=== PATIENT | female | born 1940 | race Caucasian/White ===

== ENCOUNTER 2016-07-29 14:52 | Observation (INO) | payer MEDICARE, BC ==
--- OUTSIDE RECORDS SUMMARY | 2016-07-29 14:56 | XMS REPORT | Continuity of Care Document ---
:1940 Author Organization [facility] ([facility]) Address [address] [place] [address] Phone [phone] Care Team Providers Name Role Phone Cathi Billy Primary Care Provider [phone] Source Comments This disclosure is being made pursuant to the Care Everywhere program, applicable federal and state laws, and may not contain all informaitonavailable regarding this patient.[facility] ([facility]) Active Allergies and Adverse Reactions Allergen Noted Date Severity Reactions Comments Acth 03/12/2010 Urticaria (Hives) Cotrim Double-Strength 01/29/2016 Urticaria (Hives) Meperidine 03/12/2010 Nausea & Vomiting Niacin 03/12/2010 Urticaria (Hives) Other Agent 03/12/2010 Headache Food Dye: Headaches Raisins :Headaches Propoxyphene 03/12/2010 Loss of Consciousness,Nausea & Vomiting Ruzoqms-Szv-Bdn Reductase 01/29/2016 OTHER Kidney pain Inhibitors Sulfamethoprim Ds 03/12/2010 Urticaria (Hives) Current Medications Prescription Sig. Disp. Refills Start Date End Date Status levothyroxine 88 mcg Take 88 mcg by Active tablet mouth daily. aspirin 81 mg EC tablet Take 81 mg by Active mouth daily. CHOLECALCIFEROL, VITAMIN Take 1,000 Units Active D3, (VITAMIN D-3 PO) by mouth daily. Active Problems Problem Noted Date Vasovagal near syncope 01/29/2016 Primary hyperparathyroidism 04/26/2013 Immunizations Name Dates Previously Given Next Due Influenza, unspecified 10/31/2012,11/15/2009 Social History Tobacco Use Types Packs/Day Years Used Date Former Smoker Cigarettes Quit: 04/17/1971 Smokeless Tobacco: Never Used Last Filed Vital Signs Vital Sign Reading Time Taken Blood Pressure 122/78 01/29/2016 12:19 PM MUSIC CATALOGUER Pulse 48 01/29/2016 12:19 PM MUSIC CATALOGUER Temperature 36.7 C (98.1 F) 04/26/2013 9:16 AM CDT Respiratory Rate - - Height 1.702 m (5' 7") 01/29/2016 12:19 PM MUSIC CATALOGUER Weight 75.297 kg (166 lb) 01/29/2016 12:19 PM MUSIC CATALOGUER Body Mass Index 25.99 01/29/2016 12:19 PM MUSIC CATALOGUER Oxygen Saturation - - Plan of Care Health Maintenance Due Date Last Done Comments Hepatitis B Vaccine (1 of 3 - Primary 1940 Series) Tdap Vaccine 1953 Lipid Disorder Screening 1960 Td Vaccine 1960 Mammogram 1982 Colonoscopy 08/25/1992 Zoster Vaccine 2002 Osteoporosis Screening (DXA Bone Density) 08/27/2007 Pneumococcal Vaccine (1 of 2 - PCV13) 08/27/2007 Influenza Vaccine: Seasonal (#1) 09/17/2015 10/31/2012, 11/15/2009 Results from Last 3 Months Not on file
--- OUTSIDE RECORDS SUMMARY | 2016-07-29 16:05 | XMS REPORT | Continuity of Care Document ---
:1940 Author Organization [facility] ([facility]) Address [address] [place] [address] Phone [phone] Care Team Providers Name Role Phone Cathi Billy Primary Care Provider [phone] Source Comments This disclosure is being made pursuant to the Care Everywhere program, applicable federal and state laws, and may not contain all informaitonavailable regarding this patient.[facility] ([facility]) Active Allergies and Adverse Reactions Allergen Noted Date Severity Reactions Comments Acth 03/12/2010 Urticaria (Hives) Cotrim Double-Strength 01/29/2016 Urticaria (Hives) Meperidine 03/12/2010 Nausea & Vomiting Niacin 03/12/2010 Urticaria (Hives) Other Agent 03/12/2010 Headache Food Dye: Headaches Raisins :Headaches Propoxyphene 03/12/2010 Loss of Consciousness,Nausea & Vomiting Ashayqp-Una-Qke Reductase 01/29/2016 OTHER Kidney pain Inhibitors Sulfamethoprim [...] Taken Blood Pressure 122/78 01/29/2016 12:19 PM DIGITAL MEDIA BUYER Pulse 48 01/29/2016 12:19 PM DIGITAL MEDIA BUYER Temperature 36.7 C (98.1 F) 04/26/2013 9:16 AM CDT Respiratory Rate - - Height 1.702 m (5' 7") 01/29/2016 12:19 PM DIGITAL MEDIA BUYER Weight 75.297 kg (166 lb) 01/29/2016 12:19 PM DIGITAL MEDIA BUYER Body Mass Index 25.99 01/29/2016 12:19 PM DIGITAL MEDIA BUYER Oxygen Saturation - - Plan of Care [...]
[2016-07-29] MEDS ORDERED: KETOROLAC TROMETHAMINE 15 MG/ML VIAL IV ONE (16:14)
[2016-07-29 16:29] LABS: Hematocrit 44.4 % (37.0-47.0); Hemoglobin 14.5 gm/dL (12.5-16.0); Mean Cell Volume 85.5 fl (78-100); Mean Corpuscular Hemoglobin 27.9 pg (27-31); Mean Corpuscular Hgb Conc 32.7 g/dl (32-36); Mean Platelet Volume 9.3 fl (6.0-9.5); Neutrophil # 5.3 K/mm3 (1.3-6.0); Neutrophil % 63.6 % (42-75.0); Platelet Count 313 K/mm3 (150-450); Red Blood Count 5.19 M/mm3 (4.2-5.4); Red Cell Distribution Width 12.9 % (11.5-14.0); White Blood Count 8.3 K/mm3 (4.0-10.5)
[2016-07-29 16:41] LABS: Albumin * 3.9 gm/dl (3.4-5.0); Anion Gap 13.5 mmol/L (6.8-13.8); BUN/Creatinine Ratio 22.8 (9.0-21.6); Bilirubin, Total 0.4 mg/dL (0.0-1.1); Ca. Corrected For Albumin 9.1 mg/dL (8.4-10.2); Calcium * 9.3 mg/dL (7.9-10.9); Carbon Dioxide 28.6 mmol/L (24-32.6); Potassium 4.1 mmol/L (3.4-4.6); Total Protein 8.3 gm/dL (6.2-8.2)
[2016-07-29] MEDS: TAMSULOSIN HCL 0.4 MG CAP.SR.24H PO SCH (17:42)
[2016-07-29] MEDS: NORMAL SALINE 1,000 ML IV PRN ×2 (17:43→22:50)
[2016-07-29] MEDS ORDERED: traMADol HCL 50 MG TABLET PO PRN (20:10)
--- NOTE | 2016-07-29 20:10 | HP ---
Chief Complaint - Chief Complaint Date of Service: 07/29/16 Time of Service: 20:09 Chief Complaint: "Abdominal Pain, LT Flank pain". Source of HPI- Pt; reliable, Pt's attending PCP. History of Present Illness: Mrs. Hoang is a 75-yr-old [place] pt of Dr. Cathi Billy with a PMH of: HLD, Hypothyroidism-s/p parathyroidectomy, & Osteoporosis. Pt states that on Thursday while taking a shower, she suddenly developed a "searing pain" on the left side of the abdomen that was radiating to the back. The pain continued through the night and she could not get any sleep. On Thursday morning, the pain still continued. She went on to clean the house and drunk plenty of fluids as she was afraid that she was developing a kidney stone and wanted to see if it would pass on its own. By Thursday evening, she states that she begun feeling nauseated and she had another sleepiness night due to pain. On Thursday Morning, she stayed in bed while her went to catholic. She was unable to drink any more fluids due to nausea. On Thursday, she called her boil off machine operator cloth office believing that her problem was related to ovarian cysts. She was advised to call her PCP about her symptoms. She managed to see her PCP today, 07/29 and she was admitted to the hospital directly from the clinic. She denies fevers and chills. A CT of the Abdomen obtained showed she had 1.9mm calcification on the LT ureter & approximately 2-3 cm calcification to the LT UVJ but no hydroneprosis was present. Her labwork was mostly unremarkable. She will be admitted under observation status due to inability to maintain oral hydration due to refractory nausea and abd pain and Urology will be consulted in am. - Patient's Past Medical History Patient History - Medical: Hypothyroidism, Osteoporosis Patient History - Cardiac/Respiratory: Hyperlipidemia Patient History - Surgical Procedures: Appendectomy, Cataracts, Colonoscopy, Tubal Ligation, T & A - Family History Mother Family History - Medical: , Diabetes Type 2 Insulin Dependent, Osteoporosis Family History - Cardiac/Respiratory: CVA/Stroke, Hypertension, Myocardial Infarction Father Family History - Medical: , Diabetes Type 2 Insulin Dependent Family History - Cardiac/Respiratory: CVA/Stroke, Hypertension, Myocardial Infarction - Social History Living Situations: spouse Abuse History: No History of abuse Psych History: Hx of Anxiety Smoking Status: Former smoker Have you smoked in the past 12 months: No Alcohol Use: none Drug Use: none Review Of Systems (GEN) - Review of Systems Generalized/Overall Review: Absent: Weakness, Chills, Fever, Malaise, Diaphoresis EENTM: Absent: Eye Pain, Blurred Vision Respiratory: Absent: Cough, Shortness of Breath, Orthopnea, Wheezing Cardiac: Absent: Chest Pain, Edema, Palpitations, Syncope Abdominal: Present: Nausea, Abdominal Pain. Absent: Vomiting, Hematemesis, Constipation, Diarrhea, Melena Genitourinary: Absent: Burning, Itching, Urgency, Frequency, Hematuria Musculoskeletal: Present: Back Pain. Absent: Joint Pain, Joint Swelling Neurological: Absent: Headache, Anxiety, Depressed, Emotional Problems, Tremors Skin: Absent: Dryness, Lesions, Bruising Endocrine: Present: Intolerance to Cold. Absent: Increased Hunger, Increased Thirst Misc: All systems neg except as marked Allergies/Adverse Reactions: Allergies Allergy/AdvReac Type Severity Reaction Status Date / Time cosyntropin Allergy Hives Verified 12/27/15 14:52 niacin Allergy Hives Verified 04/13/13 16:04 red (food color) Allergy Hives Verified 04/13/13 16:04 sulfamethoxazole Allergy Hives Verified 04/13/13 16:04 [From Bactrim] trimethoprim [From Bactrim] Allergy Hives Verified 04/13/13 16:04 chocolate flavor AdvReac Headache Verified 04/13/13 16:04 diphenhydramine AdvReac Other Verified 12/27/15 14:53 meperidine HCl [From Demerol] AdvReac Nausea Verified 04/13/13 16:04 propoxyphene HCl AdvReac Nausea Verified 04/13/13 16:04 [From Darvon] Iqmaiok-Rbt-Ork Reductase AdvReac kidney pain Verified 04/13/13 16:04 Inhibitor Home Medications: HOME MEDICATIONS Aspirin [Aspirin Enteric Coated] 81 mg PO DAILY 04/13/13 [Last Taken Unknown] Cholecalciferol (Vitamin D3) [Vitamin D] 1,000 unit PO DAILY 04/13/13 [Last Taken Unknown] Levothyroxine Sodium [Synthroid] 88 mcg PO DAILY 04/13/13 [Last Taken Unknown] Exam - Exam Vital Signs: Vital Signs - Last Taken Temp 37.1 C 07/29/16 16:09 Pulse 66 07/29/16 16:09 Resp 20 07/29/16 16:09 BP 165/90 07/29/16 16:09 Pulse Ox 97 07/29/16 16:09 Constitutional: Present: Oriented x3, Cooperative, Mild distress ENT Exam: Present: hearing grossly normal, dry mucous membranes. Absent: nasal congestion, nasal drainage Eye Exam: bilateral eye: normal inspection, PERRL Neck: Present: full range of motion, supple, normal inspection Back Exam: Present: no CVA tenderness, no vertebral tenderness Respiratory: Present: lungs clear, no accessory muscle use, No wheezing Cardiovascular/Chest: Present: regular rate, rhythm, no chest tenderness, no edema, no murmur Abdomen: Present: Normal bowel sounds, soft, tender, guarding - LLQ /Rectal: Present: Exam deferred Extremity: Present: non-tender, normal inspection, no pedal edema Skin Exam: Present: warm/dry, no cyanosis Lymphatic: Present: no adenopathy Neurologic: Present: no motor/sensory deficits, alert, oriented x 3 Appearance: Present: appropriate appearance, appropriate insight Eye contact: Present: cooperative, good eye contact, normal speech Thoughts: Present: normal thought pattern, no apparent hallucination Diagnostic Studies: Abnormal Lab Results 07/29/16 07/29/16 Range/Units 16:23 16:23 Basophils % 1.2 H (0.0-1.0) % Est GFR (Non-Af Amer) 57 L (60-130) mL/min BUN/Creatinine Ratio 22.8 H (9.0-21.6) Total Protein 8.3 H (6.2-8.2) gm/dL Laboratory Results WBC 8.3 K/mm3 (4.0-10.5) 07/29/16 16:23 RBC 5.19 M/mm3 (4.2-5.4) 07/29/16 16:23 Hgb 14.5 gm/dL (12.5-16.0) 07/29/16 16:23 Hct 44.4 % (37.0-47.0) 07/29/16 16:23 MCV 85.5 fl (78-100) 07/29/16 16:23 MCH 27.9 pg (27-31) 07/29/16 16:23 MCHC 32.7 g/dl (32-36) 07/29/16 16:23 RDW 12.9 % (11.5-14.0) 07/29/16 16:23 Plt Count 313 K/mm3 (150-450) 07/29/16 16:23 MPV 9.3 fl (6.0-9.5) 07/29/16 16:23 Immature Gran % (Auto) 0.40 % (0.001-0.429) 07/29/16 16:23 Immature Gran # (Auto) 0.03 K/mm3 (0.000-0.0310) 07/29/16 16:23 Neutrophils % 63.6 % (42-75.0) 07/29/16 16:23 Lymphocytes % 25.3 % (20-51) 07/29/16 16:23 Monocytes % 8.5 % (0.0-9) 07/29/16 16:23 Eosinophils % 1.0 % (0.0-3.0) 07/29/16 16:23 Basophils % 1.2 % (0.0-1.0) H 07/29/16 16:23 Nucleated RBC % 0.0 k/mm3 (0-1) 07/29/16 16:23 Neutrophils # 5.3 K/mm3 (1.3-6.0) 07/29/16 16:23 Lymphocytes # 2.1 k/mm3 (1.5-3.5) 07/29/16 16:23 Monocytes # 0.7 k/mm3 (0.0-1.0) 07/29/16 16:23 Eosinophils # 0.1 k/mm3 (0.0-0.7) 07/29/16 16:23 Absolute Basophils 0.1 k/mm3 (0.0-0.1) 07/29/16 16:23 Sodium 139 mmol/L (132-142) 07/29/16 16:23 Plasma Sodium 139 mmol/L (130-142) 07/29/16 16:23 Potassium 4.1 mmol/L (3.4-4.6) 07/29/16 16:23 Chloride 101 mmol/L (97-106) 07/29/16 16:23 Carbon Dioxide 28.6 mmol/L (24-32.6) 07/29/16 16:23 Anion Gap 13.5 mmol/L (6.8-13.8) 07/29/16 16:23 BUN 23 mg/dL (3-23) D 07/29/16 16:23 Creatinine 1.01 mg/dL (0.4-1.4) 07/29/16 16:23 Est GFR (Non-Af Amer) 57 mL/min (60-130) L 07/29/16 16:23 BUN/Creatinine Ratio 22.8 (9.0-21.6) H 07/29/16 16:23 Random Glucose 105 mg/dL (70-110) 07/29/16 16:23 Calcium 9.3 mg/dL (7.9-10.9) 07/29/16 16:23 Calcium Adj for Albumin 9.1 mg/dL (8.4-10.2) 07/29/16 16:23 Total Bilirubin 0.4 mg/dL (0.0-1.1) 07/29/16 16:23 AST 19 U/L (0-48) 07/29/16 16:23 ALT 24 U/L (19-67) 07/29/16 16:23 Alkaline Phosphatase 91 U/L (50-170) 07/29/16 16:23 Total Protein 8.3 gm/dL (6.2-8.2) H 07/29/16 16:23 Albumin 3.9 gm/dl (3.4-5.0) 07/29/16 16:23 Assessment/Plan - Assessment/Plan (1) Nephrolithiasis Assessment: Pt presented with Refractory pain & nausea and Abdominal pain that radiated to the flank.The CT of the Abdomen showed 1.9mm calcification on the LT ureter & approximately 2-3 cm calcification to the LT UVJ but no hydroneprosis. She has no Renal failure, signs of UTI or Sepsis. Will admit and monitor to see if spontaneous passage of the stone occurs and provide supportive treatment with: IVF hydration, Pain Mgt, and Antiemetics. Will keep NPO after midnight. She was started on an Alpha Albertina- Flomax to facilitate passage of the stone during the observation period AND nursing will strain all urine voids. Will consult Urology in am. Monitor labs in am. Problem: Acute (2) HLD (hyperlipidemia) Assessment: Stable Problem: Chronic (3) Hypothyroidism Assessment: Stable Problem: Chronic
[2016-07-29] MEDS ORDERED: ONDANSETRON HCL/PF 2 MG/ML VIAL IV PRN (20:11)
[2016-07-29] MEDS ORDERED: HYDROmorphone HCL 1 MG/ML DISP.SYRIN IV PRN (20:11)
[2016-07-29 23:28] LABS: Urine Bilirubin Negative (NEGATIVE); Urine Blood 50 /ul (NEGATIVE); Urine Ketone Negative (NEGATIVE); Urine Nitrite Negative (NEGATIVE); Urine Protein Negative (NEGATIVE); Urine Specific Gravity <=1.005 SP.GR. (1.005-1.010); Urine Urobilinogen Normal (NORMAL)
[2016-07-29 23:42] LABS: Urine Appearance Clear; Urine Bacteria TRACE; Urine Color Yellow; Urine Mucus Few - 1+; Urine RBC 0-5 /hpf (0-5); Urine WBC TRACE /hpf (0-5)
[2016-07-30] MEDS: NORMAL SALINE 1,000 ML IV PRN (04:21)
[2016-07-30 05:25] LABS: Hematocrit 35.4 % (37.0-47.0); Hemoglobin 11.6 gm/dL (12.5-16.0); Mean Cell Volume 85.3 fl (78-100); Mean Corpuscular Hgb Conc 32.8 g/dl (32-36); Mean Platelet Volume 9.6 fl (6.0-9.5); Neutrophil # 3.9 K/mm3 (1.3-6.0); Platelet Count 205 K/mm3 (150-450); Red Blood Count 4.15 M/mm3 (4.2-5.4); Red Cell Distribution Width 12.6 % (11.5-14.0); White Blood Count 5.8 K/mm3 (4.0-10.5)
[2016-07-30 05:32] LABS: Anion Gap 10.5 mmol/L (6.8-13.8); BUN/Creatinine Ratio 24.1 (9.0-21.6); Calcium * 8.2 mg/dL (7.9-10.9); Carbon Dioxide 25.5 mmol/L (24-32.6); Estimated Creat Clear 58.7
[2016-07-30] MEDS ORDERED: LEVOTHYROXINE SODIUM 88 MCG TABLET PO SCH (07:00)
[2016-07-30] MEDS ORDERED: CHOLECALCIFEROL 1,000 UNIT CAPSULE PO SCH (09:00)
[2016-07-30] MEDS ORDERED: ASPIRIN 81 MG TABLET.DR PO SCH (09:00)
[2016-07-30] MEDS ORDERED: CIPROFLOXACIN LACTATE/D5W 400 MG/200 ML BAG IV SCH (10:00)
[2016-07-30] MEDS ORDERED: DEXTROSE 5%-NORMAL SALINE 1,000 ML IV PRN (12:54)
--- NOTE | 2016-07-30 13:49 | CONS ---
HPI - General Narrative: Wall Attendant: Dr. Billy Reason: Microhematuria, severe left flank pain, possible left ureteral calculus 75-year-old female with 4 day history of severe left-sided discomfort including nausea. Micro-but no gross hematuria. Patient has been symptomatic up until this last couple of hours were the discomfort seems to have resolved. She has been voiding urine has been strained no stone has been recovered. 08/02 CT scan FM: Possible reported 1.9 mm left distal ureteral calculus. I reviewed the imaging myself and there are some phleboliths in the area. There is what appears to be a 2 mm wide however 5 mm long likely ureteral calculus. Obviously cannot say this for certain. Location: Left flank Duration: Roughly 4 days Severity/Stage: Was severe until recent Associated Sx's: Some nausea, no fevers Modifying factors: Has gotten better today after pain medicine Quality: Colicky Past medical history: Denies diabetes, coronary or pulmonary issues Past surgical history: No prior stone surgery Family history: Significant for stones Social history: Nonsmoker Review of systems: General: No fevers, severe left-sided flank pain and nausea as above Lungs: No shortness of breath, does not smoke Heart: No chest pain GI: No diarrhea, no constipation Endocrine: Denies diabetes : No gross hematuria 14 point review of systems otherwise negative, important positives noted - History of Present Illness Allergies/Adverse Reactions: Allergies cosyntropin Allergy (Verified 12/27/15 14:52) Hives age 16 years, premed 12/27/15 and given without problems niacin Allergy (Verified 04/13/13 16:04) Hives red (food color) Allergy (Verified 04/13/13 16:04) Hives sulfamethoxazole [From Bactrim] Allergy (Verified 04/13/13 16:04) Hives trimethoprim [From Bactrim] Allergy (Verified 04/13/13 16:04) Hives chocolate flavor Adverse Reaction (Verified 04/13/13 16:04) Headache diphenhydramine Adverse Reaction (Verified 12/27/15 14:53) Other meperidine HCl [From Demerol] Adverse Reaction (Verified 04/13/13 16:04) Nausea propoxyphene HCl [From Darvon] Adverse Reaction (Verified 04/13/13 16:04) Nausea Fjvbtjk-Pro-Wxe Reductase Inhibitor Adverse Reaction (Verified 04/13/13 16:04) kidney pain Home Medications: Home Medications Medication Instructions Recorded Last Taken Aspirin [Aspirin Enteric Coated] 81 mg PO DAILY 04/13/13 Unknown Cholecalciferol (Vitamin D3) 1,000 unit PO DAILY 04/13/13 Unknown [Vitamin D] Levothyroxine Sodium [Synthroid] 88 mcg PO DAILY 04/13/13 Unknown - Patient's Past Medical History Patient History - Medical: Hypothyroidism, Osteoporosis Patient History - Cardiac/Respiratory: Hyperlipidemia Patient History - Surgical Procedures: Appendectomy, Cataracts, Colonoscopy, Tubal Ligation, T & A - Family History Mother Family History - Medical: , Diabetes Type 2 Insulin Dependent, Osteoporosis Family History - Cardiac/Respiratory: CVA/Stroke, Hypertension, Myocardial Infarction Father Family History - Medical: , Diabetes Type 2 Insulin Dependent Family History - Cardiac/Respiratory: CVA/Stroke, Hypertension, Myocardial Infarction - Social History Living Situations: spouse Abuse History: No History of abuse Psych History: Hx of Anxiety Smoking Status: Former smoker Have you smoked in the past 12 months: No Alcohol Use: none Drug Use: none Procedures AFTER-CATAR DISCISSION (10/03/13) CATARAC PHACOEMULS/ASPIR (12/26/03) COLONOSCOPY (11/23/01) ENDOSC POLYPECTOMY OF LG INTEST (04/22/13) EXCISION VAGINAL LESION (11/07/98) FASCIOTOMY (01/04/03) INJECT/INFUSE NEC (04/22/13) INSERT LENS AT CATAR EXT (12/26/03) LOC EXC LES METATAR/TAR (01/04/03) Medications - Medications Current Medications: Current Medications Aspirin (Aspirin Enteric Coated) 81 mg PO DAILY [facility] Stop: 08/29/16 09:01 Last Admin: 07/30/16 09:11 Dose: 81 mg Cholecalciferol (Vitamin D) 1,000 unit PO DAILY ELIJAH Stop: 08/29/16 09:01 Last Admin: 07/30/16 09:11 Dose: 1,000 unit Hydromorphone HCl (Dilaudid) 0.5 mg IV Q2H PRN PRN Reason: Severe Pain Stop: 08/28/16 20:12 Last Admin: 07/30/16 02:47 Dose: 0.5 mg Sodium Chloride (Sodium Chloride 0.9%) 1,000 mls @ 175 mls/hr IV .Q5H43M PRN PRN Reason: HYDRATION Stop: 08/28/16 16:12 Last Infusion: 07/30/16 10:04 Dose: Infused Ciprofloxacin/Dextrose (Cipro) 400 mg in 200 mls @ 200 mls/hr IV Q12H ELIJAH PRN Reason: Protocol Stop: 08/29/16 10:01 Last Infusion: 07/30/16 12:00 Dose: Infused Dextrose/Sodium Chloride (Dextrose 5%-0.9% Ns) 1,000 mls @ 125 mls/hr IV .Q8H PRN PRN Reason: HYDRATION Stop: 08/29/16 12:55 Last Admin: 07/30/16 13:05 Dose: 125 mls/hr Levothyroxine Sodium (Synthroid) 88 mcg PO QDAC [facility] Stop: 08/29/16 07:01 Last Admin: 07/30/16 07:54 Dose: 88 mcg Ondansetron HCl (Zofran) 4 mg IV Q4H PRN PRN Reason: Nausea Stop: 08/28/16 20:12 Last Admin: 07/30/16 09:11 Dose: 4 mg Tamsulosin HCl (Flomax) 0.4 mg PO DAILY@1800 [facility] Stop: 08/28/16 18:01 Last Admin: 07/29/16 17:42 Dose: 0.4 mg Tramadol HCl (Ultram) 50 mg PO Q6H PRN PRN Reason: Mild pain Stop: 08/28/16 20:11 Last Admin: 07/30/16 01:55 Dose: 50 mg Physical Examination - Exam Narrative: General: Nontoxic, currently not in any acute distress, currently not in renal colic. Psych: Alert and oriented HEENT: EOM grossly intact Lungs: Respirations unlabored, clear Abdomen: Thin, benign, no peritoneal signs Neuro: sensation intact Extremities: Moves all 4 without difficulty Heart: Regular Skin: No obvious rashes Back: No CVA tenderness Vital Signs: Vital Signs - Last Taken Temp 98.4 F 07/30/16 11:15 Pulse 64 07/30/16 11:15 Resp 16 07/30/16 11:15 BP 132/71 07/30/16 11:15 Pulse Ox 96 07/30/16 11:15 O2 Oxygen Delivery Method Room Air - Results and Findings: Narrative: Microhematuria, renal colic and CT with suspicious left distal ureteral finding concerning for possible left ureteral calculus: Description, symptoms and history fairly consistent. I informed her cannot guarantee there is a stone there but it does look to be the case. There has been continued straining without catching stone. Options include continued trial of passage versus repeating imaging versus proceed with formal cystoscopy to assess bladder if stone present we would be done at that point followed by retrogrades to assess ureters make sure this is indeed left ureteral stone and if so proceed with formal left ureteroscopy with laser/basket versus simply stenting depending on intraoperative findings. Risks including bleeding/infection/injury to ureter including stricture/avulsion /perforation and typical stent symptoms discussed. Patient prefers to proceed with intervention both from a hematuria standpoint and from a potential stone standpoint. I did inform her there is a chance this is not stone so again from a microhematuria standpoint probably good workup. We'll proceed today. She has been nothing by mouth. Lab/Microbiology results last 24 hrs: Abnormal/Pending Laboratory Last 24 HRS 07/30/16 07/30/16 07/29/16 05:16 05:16 23:20 RBC 4.15 L Hgb 11.6 L Hct 35.4 L MPV 9.6 H Basophils % Lymphocytes # 1.2 L Chloride 110 H Est GFR (Non-Af Amer) BUN/Creatinine Ratio 24.1 H Random Glucose 115 H Total Protein Urine Blood 50 H Urine WBC Trace H Urine Mucus Few - 1+ H 07/29/16 07/29/16 16:23 16:23 RBC Hgb Hct MPV Basophils % 1.2 H Lymphocytes # Chloride Est GFR (Non-Af Amer) 57 L BUN/Creatinine Ratio 22.8 H Random Glucose Total Protein 8.3 H Urine Blood Urine WBC Urine Mucus
[2016-07-30] MEDS ORDERED: DEXTROSE 5%-NORMAL SALINE 1,000 ML IV ONE (14:34)
--- NOTE | 2016-07-30 14:40 | OR ---
Operative Report - Dictated Report Narrative: Location: Main OR Anesthesia: Mac anesthesia Surgeon: Dr. Kebede Preoperative diagnosis: Left renal colic and suggestion of possible left distal ureteral stone(s) Postoperative diagnosis: Normal bladder, normal bilateral retrogrades Procedure: #1 Cystoscopy with aspiration for culture and Bilateral retrograde pyelograms Indications: 75-year-old female admitted severe left-sided abdominal discomfort/ colic with CT suggestive of a possible distal ureteral calculus. Urine has been strained per report without calculus. This afternoon discomfort resolved but no stone obtained. We discussed options included remaining conservative, repeating imaging or consideration of cystoscopy with retrogrades with potential left-sided stone surgery of stone discovered. Patient elected to proceed with above-mentioned procedure. Description: Consent obtained. Patient brought to the operating room where IV/Mac was induced. Placed in the dorsal lithotomy position. Prepped and draped. Timeout taken. Rigid cystoscope introduced into the bladder with ease and quick cystoscopy revealed no tumors, stones or suspicious lesions . Bladder mucosa looked pristine. I did obtain urine sent for microscopy and culture. Bilateral retrogrades obtained and interpreted by Dr. Koo. Left ureter identified intubated with 5 Vietnamese catheter and left retrograde obtained. 5-7 mL of Isovue was injected. Distal, mid and proximal ureter delicate without filling defects or hydronephrosis. Proximal collecting system nonhydronephrotic, delicate calyces, no filling defects. Essentially normal retrograde. Prompt drainage upon removal of catheter. I repeated the distal retrograde on this side just to be safe and did not see a filling defect at all. Right side was performed to assess distal ureteral caliber and compare. Right ureter identified intubated with 5 Vietnamese catheter and right retrograde obtained. 5-7 mL of Isovue was injected. Distal, mid and proximal ureter delicate without filling defects or hydronephrosis. Proximal collecting system nonhydronephrotic, delicate calyces, no filling defects. Essentially normal retrograde. Prompt drainage upon removal of catheter. Specimen was obtained and sent for analysis. Specimen: Urine for cytology and culture EBL: 0 ml Condition: tolerated procedure Important findings: Normal bladder, normal bilateral retrogrades. Patient either had a distal stone which he passed and was never caught during straining process or possibility of this being not related to urinary tract exists. Either way she was feeling much better prior to procedure. Follow-up: I will see her in the office in 6 weeks with a voided urinalysis. From my standpoint up to primary service as to whether or not she can go home today. If pain-free and feels well would do so. If symptoms recur in the short -term consider bowels, other etiology.
--- NOTE | 2016-07-30 16:19 | DS ---
(1) Nephrolithiasis Problem: Acute (2) History of parathyroidectomy Problem: Chronic (3) HLD (hyperlipidemia) Problem: Chronic (4) Osteoporosis Problem: Chronic Description of Stay: DATE OF ADMISSION: 07/29/2016. DATE OF DISCHARGE: 07/30/2016. DIAGNOSTICS: CT ABDOMEN W/O 07/29/2016. DISCHARGE SUMMARY: Mirna Short is a 76-year-old WF with a history of parathyroidectomy, HLD, osteoporosis was admitted because of increasing back pain and nausea of [address] of abdomen W/O showed a possible 1.9 mm stone in the LT ureter 2- 3 cm proximal to the left UVJ. The patient was started on IV fluids, pain meds , antiemetics [ondansetron] and tamsulosin [Flomax 0.4 mg]. All her urine was strained w/o recovery. She started to feel better. Dr. Koo [urologist] was consulted. Cystoscopy with bilateral retrograde urograms was done. These are normal. The patient was discharged in a stable condition with a follow-up appointment. Procedures Performed: see notes below - cystoscopy with aspiration for urine culture; bilaleral retrograde pyelograms. List Procedures: Operative Report - Dictated Report Narrative: Location: Main OR Anesthesia: Mac anesthesia Surgeon: Dr. Kebede Preoperative diagnosis: Left renal colic and suggestion of possible left distal ureteral stone(s) Postoperative diagnosis: Normal bladder, normal bilateral retrogrades Procedure: #1 Cystoscopy with aspiration for culture and Bilateral retrograde pyelograms Indications: 75-year-old female admitted severe left-sided abdominal discomfort/ colic with CT suggestive of a possible distal ureteral calculus. Urine has been strained per report without calculus. This afternoon discomfort resolved but no stone obtained. We discussed options included remaining conservative, repeating imaging or consideration of cystoscopy with retrogrades with potential left-sided stone surgery of stone discovered. Patient elected to proceed with above-mentioned procedure. Description: Consent obtained. Patient brought to the operating room where IV/Mac was induced. Placed in the dorsal lithotomy position. Prepped and draped. Timeout taken. Rigid cystoscope introduced into the bladder with ease and quick cystoscopy revealed no tumors, stones or suspicious lesions . Bladder mucosa looked pristine. I did obtain urine sent for microscopy and culture. Bilateral retrogrades obtained and interpreted by Dr. Kantzavelos. Left ureter identified intubated with 5 [place] catheter and left retrograde obtained. 5-7 mL of Isovue was injected. Distal, mid and proximal ureter delicate without filling defects or hydronephrosis. Proximal collecting system nonhydronephrotic, delicate calyces, no filling defects. Essentially normal retrograde. Prompt drainage upon removal of catheter. I repeated the distal retrograde on this side just to be safe and did not see a filling defect at all. Right side was performed to assess distal ureteral caliber and compare. Right ureter identified intubated with 5 [place] catheter and right retrograde obtained. 5-7 mL of Isovue was injected. Distal, mid and proximal ureter delicate without filling defects or hydronephrosis. Proximal collecting system nonhydronephrotic, delicate calyces, no filling defects. Essentially normal retrograde. Prompt drainage upon removal of catheter. Specimen was obtained and sent for analysis. Specimen: Urine for cytology and culture EBL: 0 ml Condition: tolerated procedure Important findings: Normal bladder, normal bilateral retrogrades. Patient either had a distal stone which he passed and was never caught during straining process or possibility of this being not related to urinary tract exists. Either way she was feeling much better prior to procedure. Follow-up: I will see her in the office in 6 weeks with a voided urinalysis. From my standpoint up to primary service as to whether or not she can go home today. If pain-free and feels well would do so. If symptoms recur in the short -term consider bowels, other etiology. Results and Findings: Laboratory Tests 07/29/16 07/30/16 16:23 05:16 WBC 8.3 5.8 D Hgb 14.5 11.6 L Hct 44.4 35.4 L Plt Count 313 205 07/29/16 07/30/16 16:23 05:16 Plasma Sodium 139 142 Potassium 4.1 4.0 Chloride 101 110 H Carbon Dioxide 28.6 25.5 BUN 23 D 20 Creatinine 1.01 0.83 Est GFR (Non-Af Amer) 57 L 72 D Random Glucose 105 115 H Calcium Adj for Albumin 9.1 Total Bilirubin 0.4 AST 19 ALT 24 Alkaline Phosphatase 91 Total Protein 8.3 H Albumin 3.9 07/29/16 23:20 Ur Specific [place] <=1.005 Urine Blood 50 H Urine Nitrate Negative Ur Leukocyte Esterase Negative Urine WBC Trace H Urine Bacteria Trace Urine Mucus Few - 1+ H Discharge Disposition: Home self care Disposition: Home self-care Condition: Good Discharge Activity: Activity as tolerated Discharge Diet: Low fat/chol Referrals: Cathi Billy MD [Primary Care Provider] - Problem Oriented Discharge Instructions to Patient/Family: Kidney Stones, Easy- to-Read Additional Patient Instructions (free text): Keep appointment with Dr. Kebede in 6-[address] Floyd 10/21/16 at 9:00am Complete Home Medications List: Complete Home Medication List: Aspirin [Aspirin Enteric Coated] 81 mg PO DAILY 04/13/13 Cholecalciferol (Vitamin D3) [Vitamin D3] 1,000 unit PO DAILY 04/13/13 Levothyroxine Sodium [Synthroid] 88 mcg PO DAILY 04/13/13
[2016-07-30] MEDS: TAMSULOSIN HCL 0.4 MG CAP.SR.24H PO SCH (17:24)
[2016-07-30 18:52] VITALS: BP 122/62
== END 2016-07-30 19:00 | disposition home or self-care (01) ==
LOC: RAD 14:52 → MS 16:01
PROVIDERS: ADMIT Internal Medicine; ATTEND Internal Medicine
PROC: BT14YZZ Fluoroscopy of Kidneys, Ureters and Bladder using Other Contrast (ICD-10-PCS; 2016-07-30)
PROC: 0TJB8ZZ Inspection of Bladder, Via Natural or Artificial Opening Endoscopic (ICD-10-PCS; principal; 2016-07-30 15:25)
DX: N20.0 Calculus of kidney (principal); E78.5 Hyperlipidemia, unspecified; E89.0 Postprocedural hypothyroidism
CPT/HCPCS: 36415; 52005; 74176; 74420; 76000; 80048; 80053; 81001; 85025; 87086; 96365; 96375; G0378; G0379; J2405